=== PATIENT | male | born 1990 | race African-American/Black ===

== ENCOUNTER 2019-11-18 18:44 | Emergency (ER) | payer OTHER, SELFPAY | END 2019-11-18 19:50 | disposition home or self-care (01) | LOC: ERS 18:44 | DX: Z20.828 Contact with and (suspected) exposure to other viral communicable diseases (principal); F17.210 Nicotine dependence, cigarettes, uncomplicated | CPT/HCPCS: 87635; 99283; U0003 ==

== ENCOUNTER 2020-02-18 22:25 | Emergency (ER) | payer SELFPAY ==
--- NOTE | 2020-02-18 23:11 | RAD ---
XR Ankle Lt 3 View STANDARD History: Pain Comparison: None. Findings: No acute displaced fracture or malalignment. Mild ossification along the anterior joint cap hayes with dorsal talar neck spur. Impression: No acute osseous abnormality.
== END 2020-02-18 23:45 | disposition home or self-care (01) ==
LOC: ERS 22:25
DX: M79.89 Other specified soft tissue disorders (principal); M79.672 Pain in left foot; F17.210 Nicotine dependence, cigarettes, uncomplicated

== ENCOUNTER 2020-09-24 20:28 | Emergency (ER) | payer SELFPAY ==
[2020-09-24 21:42] LABS: Mean Corpuscular HGB CONC 33.8 g/dL (32.0-36.0); Mean Corpuscular Hemoglobin 29.2 pg (27.0-31.0); Mean Corpuscular Volume 86.2 fL (78.0-98.0)
[2020-09-24 21:54] LABS: ALT (SGPT) 40 U/L (8-55); AST (SGOT) 22 U/L (5-34); Albumin 4.2 g/dL (3.5-5.0); Alkaline Phosphatase 73 U/L (40-110); Anion Gap 14 mmol/L (10-20); BUN (Urea Nitrogen) 10 mg/dL (8.9-20.6); Bilirubin, Total 0.3 mg/dL (0.2-1.2); Calc. Creatinine Clearance 0 mL/min (70-130); Calcium 8.9 mg/dL (7.8-10.44); Carbon Dioxide 22 mmol/L (22-29); Chloride 108 mmol/L (98-107); Globulin 3.1 g/dL (2.4-3.5); Glucose 97 mg/dL (70-105); Lipase 89 U/L (8-78); Potassium 3.6 mmol/L (3.5-5.1); Protein, Total 7.3 g/dL (6.0-8.3); Sodium 140 mmol/L (136-145)
[2020-09-24 22:11] LABS: Band 1 % (5-11); Eosinophils 2 % (0-10); Large Platelets SLIGHT; Lymphocytes 58 % (21-51); MDiff Complete? YES; Mean Platelet Volume 10.7 fL (7.4-10.4); Monocytes 3 % (0-10); Neutrophil 36 % (42-75); Platelet Count 103 thou/uL (130-400); Platelet Morphology Comment Appears Decreased; White Blood Cell (WBC) Count 5.2 thou/uL (4.8-10.8)
[2020-09-24 22:13] LABS: Bacteria/HPF None Seen HPF (None Seen); Bilirubin Negative (Negative); Blood, Urine Negative (Negative); Clarity Clear (Clear); Glucose, Urine (Dipstick) Normal (Negative); Ketone, Urine Negative (Negative); Leukocyte 25 Leu/uL (Negative); Nitrite Negative (Negative); Protein, Urine (Dipstick) 20 mg/dL (Neg-Trace); Specific Gravity, Urine 1.019 (1.002-1.036); Squamous Epithelial 0-3 HPF (0-3); Urobilinogen Normal mg/dL (Less than 2); pH, Urine 5.5 (5.0-9.0)
[2020-09-24] MEDS ORDERED: Lidocaine 1% PF 5 ML VIAL ONE (22:36)
[2020-09-24] MEDS ORDERED: cefTRIAXone\\ROCEPHIN 500 MG VIAL ONE (22:36)
[2020-09-24] MEDS ORDERED: Azithromycin 250 MG TAB ONE (22:38)
== END 2020-09-24 22:45 | disposition home or self-care (01) ==
LOC: ERS 20:28
DX: R30.0 Dysuria (principal); R36.9 Urethral discharge, unspecified; F17.210 Nicotine dependence, cigarettes, uncomplicated
CPT/HCPCS: 36415; 80053; 81003; 81015; 83690; 85025; 96372; 99283; J0696

== ENCOUNTER 2024-03-27 20:36 | Emergency (ER) | payer BC, SELFPAY ==
[~2024-03-27 20:36] MED LIST: Iopamidol-370 76% 500 ML MDV (1 ML CHARGE) ONE
[2024-03-27 21:54] LABS: #Basophils Less than 0.03 10x3/uL (0.0-0.2); %Basophils 0.2 % (0.0-1.0); %Eosinophils 1.8 % (0.0-10.0); %Lymphocytes 31.8 % (21.0-51.0); %Monocytes 5.8 % (0.0-10.0); %Neutrophils 60.1 % (42.0-75.0); Hematocrit 44.3 % (42.0-52.0); Hemoglobin 15.6 g/dL (14.0-18.0); Mean Corpuscular HGB CONC 35.2 g/dL (32.0-36.0); Mean Corpuscular Hemoglobin 29.5 pg (27.0-31.0); Mean Corpuscular Volume 83.9 fL (78.0-98.0); Mean Platelet Volume 12.4 fL (7.4-10.4); Platelet Count 145 10x3/uL (130-400); RBC Distribution Width 13.5 % (11.5-14.5); Red Blood Cell (RBC) Count 5.28 mill/uL (4.70-6.10)
[2024-03-27] MEDS ORDERED: Ketorolac Tromethamine 30 MG (1 mL) VIAL ONE (22:03)
[2024-03-27] MEDS ORDERED: Orphenadrine Citrate 60 MG/2 ML VIAL ONE (22:03)
[2024-03-27 22:04] LABS: ALT (SGPT) 48 U/L (8-55); AST (SGOT) 27 U/L (5-34); Albumin 4.2 g/dL (3.5-5.0); Alkaline Phosphatase 79 U/L (40-110); Anion Gap 14 mmol/L (10-20); BUN (Urea Nitrogen) 8 mg/dL (8.9-20.6); Bilirubin, Total 0.4 mg/dL (0.2-1.2); Calc. Creatinine Clearance 0 mL/min (70-130); Calcium 9.4 mg/dL (7.8-10.44); Carbon Dioxide 22 mmol/L (22-29); Chloride 109 mmol/L (98-107); Estimated GFR 95; Globulin 3.5 g/dL (2.4-3.5); Glucose 92 mg/dL (70-105); Potassium 3.8 mmol/L (3.5-5.1); Protein, Total 7.7 g/dL (6.0-8.3); Sodium 141 mmol/L (136-145)
[2024-03-27 22:10] LABS: Bacteria/HPF None Seen HPF (None Seen); Bilirubin Negative (Negative); Blood, Urine Negative (Negative); CAUTI Indications for Culture Pelvic or flank pain; Clarity Clear (Clear); Glucose, Urine (Dipstick) Normal (Negative); Ketone, Urine Negative (Negative); Leukocyte Negative Leu/uL (Negative); Nitrite Negative (Negative); Protein, Urine (Dipstick) 50 mg/dL (Neg-Trace); RBC/HPF 0-3 HPF (0-3); Specific Gravity, Urine 1.013 (1.002-1.036); Squamous Epithelial None Seen HPF (0-3); WBC/HPF 0-3 HPF (0-3); pH, Urine 6.5 (5.0-9.0)
[2024-03-27 22:12] LABS: Urine Culture Reflex No No
== END 2024-03-28 00:46 | disposition home or self-care (01) ==
LOC: ERS 20:36
DX: S39.011A Strain of muscle, fascia and tendon of abdomen, initial encounter (principal); R10.2 Pelvic and perineal pain; F17.210 Nicotine dependence, cigarettes, uncomplicated; Z55.6 Problems related to health literacy
CPT/HCPCS: 36415; 74177; 80053; 81001; 83605; 85025; 96374; J1885; J2360; Q9967